=== PATIENT | female | born 1950 | race Caucasian/White ===

== ENCOUNTER → 2023-11-30 10:18 | Outpatient (CLI) | payer MEDICARE, OTHER, SELFPAY ==
--- NOTE | 2023-11-30 10:21 | DI.US.S_ITS ---
PROCEDURE: US PELVIC COMPLETE INDICATIONS: FOLLOW-UP CYST VS FIBROID TECHNIQUE: Real-time scanning was performed of the pelvic organs, with image documentation. Additional endovaginal scanning was necessary due to incomplete visualization of the adnexal and endometrial structures by transabdominal scanning. COMPARISON: 11/05/2021. FINDINGS: Uterus: Uterus is anteverted and normal in size at 5.6 x 1.7 x 4.1 cm. The myometrium is heterogenous. Small 5 mm myometrial cyst. The endometrium measures 1.3 mm combined thickness. Moderate simple fluid in the endocervical canal Ovaries: Right ovary not visualized. Left ovary measures 1.6 x 2.6 x 1.3 cm for a 2.7 cc volume. Less than 12 follicles noted. Other: No pathologic free abdominal or pelvic fluid. IMPRESSION: Moderate simple fluid noted in the endocervical canal Nonvisualized right ovary Approved by: Jeremie Rodriguez M.D. on 11/30/2023 at 18:35
== END ==
PROVIDERS: PCP Family Medicine; Referring Provider Specialist; Visit Provider Specialist
DX: N85.8 Other specified noninflammatory disorders of uterus (principal)
CPT/HCPCS: 76830; 76856